=== PATIENT | female | born 1965 | race African-American/Black ===

== ENCOUNTER 2018-05-17 18:53 | Emergency (ER) | payer BC, OTHER ==
[2018-05-17 19:58] LABS: #Basophils 0.1 thou/uL (0.0-0.2); #Monocytes 0.2 thou/uL (0.11-0.59); #Neutrophils 9.2 thou/uL (1.40-6.50); %Basophils 0.5 % (0.0-1.0); %Eosinophils 0.2 % (0.0-10.0); %Lymphocytes 17.1 % (21.0-51.0); %Monocytes 2.1 % (0.0-10.0); Hemoglobin 13.5 g/dL (12.0-16.0); Mean Corpuscular HGB CONC 33.6 g/dL (32.0-36.0); Mean Corpuscular Hemoglobin 30.2 pg (27.0-31.0); Mean Corpuscular Volume 89.9 fL (78.0-98.0); Mean Platelet Volume 6.4 fL (7.4-10.4); Platelet Count 304 thou/uL (130-400); RBC Distribution Width 13.9 % (11.5-14.5); Red Blood Cell (RBC) Count 4.47 mill/uL (4.20-5.40); White Blood Cell (WBC) Count 11.5 thou/uL (4.8-10.8)
[2018-05-17 20:00] LABS: ALT (SGPT) 32 U/L (8-55); AST (SGOT) 21 U/L (5-34); Albumin 4.2 g/dL (3.5-5.0); Alkaline Phosphatase 78 U/L (40-150); Anion Gap 15 mmol/L (10-20); BUN (Urea Nitrogen) 23 mg/dL (9.8-20.1); Bilirubin, Total 0.4 mg/dL (0.2-1.2); Calc. Creatinine Clearance 0 mL/min (70-130); Calcium 9.4 mg/dL (7.8-10.44); Carbon Dioxide 26 mmol/L (22-29); Chloride 106 mmol/L (98-107); Estimated GFR-MDRD 62; Globulin 3.1 g/dL (2.4-3.5); Glucose 129 mg/dL (70-105); Potassium 4.3 mmol/L (3.5-5.1); Protein, Total 7.3 g/dL (6.0-8.3); Sodium 143 mmol/L (136-145)
--- NOTE | 2018-05-17 20:08 | RAD ---
UPRIGHT PORTABLE CHEST ONE VIEW: History: 52-year-old female with history of short of breath. FINDINGS: Large body habitus lowers the sensitivity of this study. No confluent pneumonia, overt edema, or pleu ral effusion. IMPRESSION: No acute intrathoracic disease. POS: [facility]
[2018-05-17] MEDS ORDERED: Ketorolac Tromethamine 30 MG/ML VIAL ONE (20:18)
--- NOTE | 2018-05-17 21:14 | ULT ---
BILATERAL LOWER EXTREMITY VENOUS DUPLEX ULTRASOUND INCLUDING COLOR AND SPECTRAL DOPPLER IMAGIN05/17/18 HISTORY: 52-year-old female with history of bilateral leg pain and shortness of breath. Exam performed from gr oin to ankle including visualized greater saphenous, common femoral, superficial femoral, profunda fe moral, popliteal, trifurcation, and posterior tibial vein regions. There is phasic flow at all levels with normal compressibility and normal augmentation. No intraluminal thrombus. IMPRESSION: No evidence for deep venous thrombosis. POS: [facility]
== END 2018-05-17 21:30 | disposition home or self-care (01) ==
LOC: SCSER 18:53
DX: M79.604 Pain in right leg (principal); M79.605 Pain in left leg; I10 Essential (primary) hypertension; E66.9 Obesity, unspecified; F32.9 Major depressive disorder, single episode, unspecified
CPT/HCPCS: 71045; 80053; 83880; 84484; 85025; 85379; 93005; 93970; 96374; J1885

== ENCOUNTER 2018-05-22 12:47 | Outpatient (CLI) | payer BC, OTHER | END 2018-05-22 12:48 | disposition home or self-care (01) | LOC: ULT 12:47 | PROVIDERS: ATTEND Family Medicine | DX: I10 Essential (primary) hypertension (principal); M79.89 Other specified soft tissue disorders; I08.1 Rheumatic disorders of both mitral and tricuspid valves | CPT/HCPCS: 93306 ==

== ENCOUNTER 2018-06-07 08:22 | Outpatient (CLI) | payer BC, OTHER ==
--- NOTE | 2018-06-07 09:49 | RAD ---
PA AND LATERAL CHEST XRAY: DATE: 06/07/2018. HISTORY: Fluid retention for many years. COMPARISON: 05/17/2018. FINDINGS: The cardiac silhouette and pulmonary vasculature are within normal limits. The lungs remain clear. There has been no interval change from the prior exam. IMPRESSION: No acute cardiopulmonary process. POS: [facility]
== END 2018-06-07 08:23 | disposition home or self-care (01) ==
LOC: SCSRAD 08:22
PROVIDERS: ATTEND Family Medicine
DX: R06.02 Shortness of breath (principal)
CPT/HCPCS: 71046

== ENCOUNTER 2018-08-02 10:24 | Emergency (ER) | payer BC, OTHER ==
[~2018-08-02 10:24] MED LIST: Iopamidol 370 76% 100 ML VIAL ONE
[2018-08-02 11:13] LABS: #Basophils 0.1 thou/uL (0.0-0.2); #Eosinphils 0.2 thou/uL (0.0-0.7); #Lymphocytes 2.4 thou/uL (1.20-3.40); #Monocytes 0.5 thou/uL (0.11-0.59); #Neutrophils 3.9 thou/uL (1.40-6.50); %Basophils 1.3 % (0.0-1.0); %Lymphocytes 33.6 % (21.0-51.0); %Neutrophils 55.2 % (42.0-75.0); Mean Corpuscular HGB CONC 32.5 g/dL (32.0-36.0); Mean Corpuscular Hemoglobin 30.9 pg (27.0-31.0); Mean Corpuscular Volume 95.2 fL (78.0-98.0); Mean Platelet Volume 6.9 fL (7.4-10.4); Platelet Count 305 thou/uL (130-400); RBC Distribution Width 12.8 % (11.5-14.5); Red Blood Cell (RBC) Count 4.52 mill/uL (4.20-5.40)
--- NOTE | 2018-08-02 11:51 | ULT ---
BILATERAL LOWER EXTREMITY VENOUS DUPLEX EXAM: Date: 08/02/18 HISTORY: Bilateral leg pain, swelling. Shortness of breath. FINDINGS: Real-time color Doppler evaluation of the right and left lower extremities performed from groin to ca lf. This includes evaluation of the common femoral, superficial and profunda femoral, saphenous, popl iteal, and posterior tibial veins. This shows patent deep venous systems bilaterally. There is normal compressibility and augmentation. There is no evidence of deep venous thrombosis. IMPRESSION: No evidence of deep venous thrombosis of either lower extremity. POS: [facility]
--- NOTE | 2018-08-02 14:04 | CT ---
CT ANGIOGRAM OF THE CHEST: HISTORY: Rheumatoid arthritis. Chest pain. Elevated D-dimer. COMPARISON: None. TECHNIQUE: CT angiogram of the chest is performed in the axial plane. Three-dimensional reformatted images are submitted for interpretation. FINDINGS: No mediastinal mass, lymphadenopathy, or hematoma. Heart size is within normal limits. No pericardi al effusion. The thoracic aorta and upper abdominal aorta have a normal caliber. No periaortic fat stranding. Diffuse hypoattenuation of the liver due to hepatic steatosis. Visualized upper solid abdominal visc era is grossly unremarkable. Trachea and central bronchi are patent. No masses or consolidation. No pleural effusion or pneumoth orax. Minimal scar/atelectasis in both lower lobes. No lytic or blastic lesions in the osseous structures. Adequate contrast opacification of the pulmon julio arterial system to the level of the segmental arteries. No filling defect to suggest thromboembo lism. IMPRESSION: No evidence of pulmonary artery embolism to the level of the segmental arteries. POS: [facility]
== END 2018-08-02 13:56 | disposition home or self-care (01) ==
LOC: SCSER 10:24
DX: R06.02 Shortness of breath (principal); R07.9 Chest pain, unspecified; E66.9 Obesity, unspecified; I10 Essential (primary) hypertension; M06.9 Rheumatoid arthritis, unspecified
CPT/HCPCS: 36415; 71275; 80053; 80061; 83036; 83880; 84443; 84484; 85025; 85379; 93005; 93970; Q9967

== ENCOUNTER 2018-11-15 09:07 | Outpatient (CLI) | payer OTHER ==
--- NOTE | 2018-11-20 13:03 | MMO ---
Bilateral MAMMO Bilat Screen [facility]. CLINICAL HISTORY: Patient is 53 years old and is seen for screening. The patient has the following family history of breast cancer: mother, at age 72, malignant (generic). The patient has no personal history of cancer. VIEWS: The views performed were: bilateral craniocaudal and bilateral mediolateral oblique. FILMS COMPARED: The present examination has been compared to a prior imaging study performed at This study has been interpreted with the assistance of computer-aided detection. MAMMOGRAM FINDINGS: There are scattered fibroglandular densities. There are benign appearing calcifications seen in the left breast. There are no suspicious masses, suspicious calcifications, or new areas of architectural distortion. IMPRESSION: THERE IS NO MAMMOGRAPHIC EVIDENCE OF MALIGNANCY. A ROUTINE FOLLOW-UP MAMMOGRAM IN 1 YEAR IS RECOMMENDED. ACR BI-RADS Category 2 - Benign finding MAMMOGRAPHY NOTE: 1. A negative mammogram report should not delay a biopsy if a dominant of clinically suspicious mass is present. 2. Approximately 10% to 15% of breast cancers are not detected by mammography. 3. Adenosis and dense breasts may obscure an underlying neoplasm.
== END 2018-11-15 09:08 | disposition home or self-care (01) ==
LOC: SCSMAMMO 09:07
PROVIDERS: ATTEND Family Medicine
DX: Z12.31 Encounter for screening mammogram for malignant neoplasm of breast (principal); Z80.3 Family history of malignant neoplasm of breast
CPT/HCPCS: 77067

== ENCOUNTER 2019-06-24 12:33 | Outpatient (CLI) | payer OTHER ==
--- NOTE | 2019-06-24 13:52 | CT ---
CT coronary calcium score: DATE: 06/24/2019 HISTORY: 54-year-old hypertensive female for coronary calcium score screening study. TECHNIQUE: Noncontrast CT through the heart, with display of the limited [id number] surrounding central lung ashby. FINDINGS: Liver is enlarged and has diffusely low attenuation representing fatty liver. No major pathology of central visualized portions of lung ashby. No cardiomegaly. No pericardial effusion. No coronary artery calcification. IMPRESSION: 1. Coronary calcium score is 0. 2. Hepatic steatosis and hepatomegaly.
== END 2019-06-24 12:34 | disposition home or self-care (01) ==
LOC: BICCT 12:33
PROVIDERS: ATTEND Family Medicine
DX: I10 Essential (primary) hypertension (principal); K76.0 Fatty (change of) liver, not elsewhere classified; R16.0 Hepatomegaly, not elsewhere classified
CPT/HCPCS: 75571

== ENCOUNTER 2020-03-30 12:39 | Outpatient (CLI) | payer OTHER | END 2020-03-30 12:40 | disposition home or self-care (01) | LOC: ULT 12:39 | PROVIDERS: ATTEND Family Medicine | DX: R60.0 Localized edema (principal); I08.1 Rheumatic disorders of both mitral and tricuspid valves | CPT/HCPCS: 93306 ==

== ENCOUNTER 2021-02-25 09:32 | Outpatient (CLI) | payer OTHER | END 2021-02-25 09:33 | disposition home or self-care (01) | LOC: BICRAD 09:32 | PROVIDERS: ATTEND Internal Medicine Pulmonary Disease | DX: R06.00 Dyspnea, unspecified (principal) | CPT/HCPCS: 71046 ==

== ENCOUNTER 2021-05-21 10:26 | Outpatient (CLI) | payer OTHER | END 2021-05-21 10:27 | disposition home or self-care (01) | LOC: DTY/OP 10:26 | PROVIDERS: ATTEND Surgery | DX: E66.01 Morbid (severe) obesity due to excess calories (principal) | CPT/HCPCS: 97802 ==

== ENCOUNTER 2021-06-30 10:31 | Outpatient (CLI) | payer OTHER | END 2021-06-30 10:32 | disposition home or self-care (01) | LOC: DTY/OP 10:31 | PROVIDERS: ATTEND Surgery | DX: E66.01 Morbid (severe) obesity due to excess calories (principal) | CPT/HCPCS: 97802 ==

== ENCOUNTER 2021-07-29 13:11 | Outpatient (CLI) | payer OTHER | END 2021-07-29 13:12 | disposition home or self-care (01) | LOC: DTY/OP 13:11 | PROVIDERS: ATTEND Surgery | DX: E66.01 Morbid (severe) obesity due to excess calories (principal) | CPT/HCPCS: 97802 ==

== ENCOUNTER 2021-09-29 10:54 | Outpatient (CLI) | payer OTHER | END 2021-09-29 10:55 | disposition home or self-care (01) | LOC: DTY/OP 10:54 | PROVIDERS: ATTEND Surgery | DX: E66.01 Morbid (severe) obesity due to excess calories (principal) | CPT/HCPCS: 97802 ==

== ENCOUNTER 2021-10-29 10:46 | Outpatient (CLI) | payer OTHER | END 2021-10-29 10:47 | disposition home or self-care (01) | LOC: DTY/OP 10:46 | PROVIDERS: ATTEND Surgery | DX: E66.01 Morbid (severe) obesity due to excess calories (principal) | CPT/HCPCS: 97802 ==

== ENCOUNTER 2021-12-24 09:49 | Outpatient (CLI) | payer OTHER ==
[2021-12-24 10:57] LABS: #Eosinphils 0.2 10x3/uL (0.0-0.5); #Monocytes 0.6 10x3/uL (0.0-1.1); #Neutrophils 4.4 10x3/uL (1.5-8.4); %Basophils 0.5 % (0.0-2.0); %Eosinophils 1.9 % (0.0-6.0); %Lymphocytes 33.6 % (18.0-47.0); %Monocytes 7.4 % (0.0-10.0); %Neutrophils 56.2 % (40.0-75.0); Hemoglobin 13.8 g/dL (12.0-15.5); Mean Corpuscular HGB CONC 33.7 g/dL (32.0-36.0); Mean Corpuscular Hemoglobin 30.5 pg (27.0-33.0); Mean Corpuscular Volume 90.5 fl (81.6-98.3); Mean Platelet Volume 9.4 fl (7.4-10.4); Platelet Count 331 10x3/uL (150-450); RBC Distribution Width 13.5 % (11.5-14.5); Red Blood Cell (RBC) Count 4.53 10x6/uL (3.90-5.03); White Blood Cell (WBC) Count 7.8 10x3/uL (3.5-10.5)
[2021-12-24 11:16] LABS: ALT (SGPT) 41 U/L (8-55); AST (SGOT) 27 U/L (5-34); Albumin 4.6 g/dL (3.5-5.0); Alkaline Phosphatase 74 U/L (40-110); Anion Gap 15 mmol/L (10-20); BUN (Urea Nitrogen) 21 mg/dL (9.8-20.1); Bilirubin, Total 0.5 mg/dL (0.2-1.2); Calc. Creatinine Clearance 0 mL/min (70-130); Calcium 9.9 mg/dL (7.8-10.44); Carbon Dioxide 25 mmol/L (22-29); Chloride 105 mmol/L (98-107); Estimated GFR 80; Globulin 2.8 g/dL (2.4-3.5); Glucose 101 mg/dL (70-105); Potassium 4.3 mmol/L (3.5-5.1); Protein, Total 7.4 g/dL (6.0-8.3); Sodium 141 mmol/L (136-145)
[2021-12-24 14:13] LABS: Hemoglobin A1c 6.4 % (4.0-6.0)
== END 2021-12-24 09:50 | disposition home or self-care (01) ==
LOC: LABBT 09:49
PROVIDERS: ATTEND Surgery
DX: Z01.818 Encounter for other preprocedural examination (principal); E66.01 Morbid (severe) obesity due to excess calories; Z20.822 Contact with and (suspected) exposure to COVID-19
CPT/HCPCS: 71046; 80053; 83036; 85025; 87811

== ENCOUNTER 2021-12-24 10:15 | Inpatient (IN) | payer OTHER ==
[2021-12-29] MEDS ORDERED: Heparin 5,000 UNITS/ML VIAL ONE (07:55)
[2021-12-29] MEDS ORDERED: Lidocaine 1% w/Epinephrine 1:200K 30 ML VIAL ONE (08:55)
[2021-12-29] MEDS ORDERED: Bupivacaine 0.25% 10 ML VIAL ONE ×2 (08:55→08:57)
[2021-12-29] MEDS ORDERED: SUGAMMADEX SODIUM 200 MG/2 ML VIAL ONE (09:44)
[2021-12-29] MEDS ORDERED: fentaNYL Citrate/PF 100 MCG/2 ML SYRINGE ONE (09:44)
[2021-12-29] MEDS ORDERED: CEFAZOLIN 2 GM VIAL ONE (09:53)
[2021-12-29] MEDS ORDERED: Sodium Chloride 0.9% 100 ML ONE (09:53)
[2021-12-29] MEDS ORDERED: Dexamethasone 20 MG/5 ML VIAL ONE (10:16)
[2021-12-29] MEDS ORDERED: Ondansetron PF 4 MG/2 ML Vial ONE (10:16)
[2021-12-29] MEDS ORDERED: PROPOFOL 200 MG/20 ML VIAL ONE (10:16)
[2021-12-29] MEDS ORDERED: Ketorolac Tromethamine 30 MG/ML VIAL ONE (10:16)
[2021-12-29] MEDS ORDERED: Rocuronium Bromide 10 MG/ML (10ML VIAL) ONE (10:16)
[2021-12-29] MEDS ORDERED: Lidocaine 1% PF 5 ML VIAL ONE (10:16)
[2021-12-29] MEDS ORDERED: Promethazine HCl 25 MG/ML VIAL IM PRN (11:17)
[2021-12-29] MEDS ORDERED: Promethazine HCl 25 MG/ML VIAL IVPB PRN (11:17)
[2021-12-29] MEDS ORDERED: Ondansetron HCl/PF 4 MG/2 ML Vial IVP PRN (11:17)
[2021-12-29] MEDS ORDERED: HYDROmorphone 2 MG/ML VIAL SLOW IVP PRN (11:17)
[2021-12-29] MEDS ORDERED: Meperidine HCl/PF 25 MG/ML VIAL SLOW IVP PRN (11:17)
[2021-12-29] MEDS ORDERED: Hydrocodone-Acetamin 15 ML UDCUP PO PRN (11:31)
[2021-12-29] MEDS ORDERED: diphenhydrAMINE 50 MG/ML VIAL IVP PRN (11:31)
[2021-12-29] MEDS ORDERED: hydrALAZINE 20 MG/ML VIAL SLOW IVP PRN (11:31)
[2021-12-29] MEDS ORDERED: Dextrose 5% in Water 1,000 ML IV PRN (11:31)
[2021-12-29] MEDS ORDERED: Morphine 2 MG/ML VIAL SLOW IVP PRN (11:31)
[2021-12-29] MEDS ORDERED: Dextrose 50% Abboject 50 ML SYRINGE SLOW IVP PRN (11:31)
[2021-12-29] MEDS ORDERED: ceFAZolin 2 GM/Dextrose 50 ML 2 GM in Premix Bag 1 BAG IVPB SCH (11:45)
[2021-12-29] MEDS ORDERED: Fentanyl 100 MCG/2 ML VIAL ONE ×3 (12:01→12:59)
[2021-12-29 14:03] VITALS: BMI 41.5
[2021-12-29] MEDS: Ketorolac Tromethamine 30 MG/ML VIAL IVP SCH ×3 (14:21→22:56)
[2021-12-29] MEDS: D5 1/2 NS w/20 mEq KCL 1,000 ML IV SCH ×2 (14:33→22:59)
[2021-12-29] MEDS: Promethazine HCl 25 MG/ML VIAL IM PRN ×2 (15:04→23:05)
[2021-12-29] MEDS: Morphine 4 MG/ML VIAL SLOW IVP PRN ×2 (15:11→18:09)
[2021-12-29] MEDS: CEFAZOLIN 2 GM in Sodium Chloride 0.9% 100 ML IVPB SCH (17:53)
[2021-12-29] MEDS: Ondansetron PF 4 MG/2 ML Vial IVP PRN (18:10)
[2021-12-30] MEDS: CEFAZOLIN 2 GM in Sodium Chloride 0.9% 100 ML IVPB SCH (01:55)
[2021-12-30] MEDS: Ketorolac Tromethamine 30 MG/ML VIAL IVP SCH ×2 (05:26→11:25)
[2021-12-30] MEDS: Ondansetron PF 4 MG/2 ML Vial IVP PRN ×2 (05:29→11:54)
[2021-12-30] MEDS: D5 1/2 NS w/20 mEq KCL 1,000 ML IV SCH (05:30)
[2021-12-30 06:19] LABS: #Lymphocytes 2.4 thou/uL (1.20-3.40); #Monocytes 1.1 thou/uL (0.11-0.59); %Eosinophils 0.3 % (0.0-10.0); %Lymphocytes 19.2 % (21.0-51.0); %Monocytes 8.5 % (0.0-10.0); Hemoglobin 12.4 g/dL (12.0-16.0); Mean Corpuscular HGB CONC 32.2 g/dL (32.0-36.0); Mean Corpuscular Hemoglobin 31.2 pg (27.0-31.0); Mean Corpuscular Volume 96.9 fL (78.0-98.0); Mean Platelet Volume 7.3 fL (7.4-10.4); Platelet Count 283 thou/uL (130-400); RBC Distribution Width 12.7 % (11.5-14.5); Red Blood Cell (RBC) Count 3.98 mill/uL (4.20-5.40); White Blood Cell (WBC) Count 12.5 thou/uL (4.8-10.8)
[2021-12-30 06:44] LABS: Anion Gap 13 mmol/L (10-20); BUN (Urea Nitrogen) 12 mg/dL (9.8-20.1); Calc. Creatinine Clearance 124 mL/min (70-130); Calcium 8.6 mg/dL (7.8-10.44); Carbon Dioxide 25 mmol/L (22-29); Chloride 107 mmol/L (98-107); Estimated GFR 71; Glucose 131 mg/dL (70-105); Potassium 3.9 mmol/L (3.5-5.1); Sodium 141 mmol/L (136-145)
[2021-12-30] MEDS ORDERED: Enoxaparin Sodium 40 MG/0.4 ML SYRINGE SC SCH (09:00)
[2021-12-30] MEDS ORDERED: Pantoprazole 40 MG VIAL IVP SCH (09:00)
[2021-12-30 11:57] VITALS: BP 122/78; TEMP 98.1
== END 2021-12-30 13:55 | disposition home or self-care (01) | DRG 621 ==
LOC: SURG A 12-29 07:11
PROVIDERS: ADMIT Surgery; ATTEND Surgery
PROC: 0DB64Z3 Excision of Stomach, Percutaneous Endoscopic Approach, Vertical (ICD-10-PCS; principal; 2021-12-29)
PROC: 8E0W3CZ Robotic Assisted Procedure of Trunk Region, Percutaneous Approach (ICD-10-PCS; 2021-12-29)
DX: E66.01 Morbid (severe) obesity due to excess calories (principal); Z68.41 Body mass index [BMI] 40.0-44.9, adult; I10 Essential (primary) hypertension; M19.90 Unspecified osteoarthritis, unspecified site; E11.9 Type 2 diabetes mellitus without complications; Z90.710 Acquired absence of both cervix and uterus; Z98.51 Tubal ligation status; Z98.890 Other specified postprocedural states; Z87.891 Personal history of nicotine dependence; Z88.8 Allergy status to other drugs, medicaments and biological substances
CPT/HCPCS: 36415; 36416; 80048; 85025; 88307; 88342; C9113; J0360; J0690; J1100; J1644; J1650; J1885; J2270; J2405; J2550; J2704; J3010; J3480; J3490; S0020

== ENCOUNTER 2022-01-20 11:40 | Outpatient (CLI) | payer OTHER | END 2022-01-20 11:41 | disposition home or self-care (01) | LOC: SCSRAD 11:40 | PROVIDERS: ATTEND Student in an Organized Health Care Education/Training Program | DX: M25.552 Pain in left hip (principal) ==

== ENCOUNTER 2022-06-22 00:22 | Observation (INO) | payer OTHER ==
[2022-06-22 00:43] LABS: #Eosinphils 0.2 thou/uL (0.0-0.7); #Lymphocytes 2.9 thou/uL (1.20-3.40); #Monocytes 0.5 thou/uL (0.11-0.59); #Neutrophils 4.2 thou/uL (1.40-6.50); %Basophils 0.3 % (0.0-1.0); %Eosinophils 2.5 % (0.0-10.0); %Lymphocytes 36.7 % (21.0-51.0); %Neutrophils 53.6 % (42.0-75.0); Hemoglobin 13.4 g/dL (12.0-16.0); Mean Corpuscular HGB CONC 33.8 g/dL (32.0-36.0); Mean Corpuscular Hemoglobin 31.6 pg (27.0-31.0); Mean Corpuscular Volume 93.3 fl (78.0-98.0); Mean Platelet Volume 7.6 fL (7.4-10.4); Platelet Count 276 10x3/uL (130-400); RBC Distribution Width 12.1 % (11.5-14.5); Red Blood Cell (RBC) Count 4.26 mill/uL (4.20-5.40); White Blood Cell (WBC) Count 7.8 10x3/uL (4.8-10.8)
[2022-06-22 00:52] LABS: INR-International Normal Ratio 0.9; PTT 24.7 sec (22.9-36.1); Prothrombin Time 12.5 sec (12.0-14.7)
[2022-06-22] MEDS ORDERED: Dextrose 50% Abboject 50 ML SYRINGE ONE (00:57)
[2022-06-22 01:04] LABS: ALT (SGPT) 20 U/L (8-55); AST (SGOT) 20 U/L (5-34); Albumin 4.2 g/dL (3.5-5.0); Alkaline Phosphatase 85 U/L (40-110); Anion Gap 15 mmol/L (10-20); BUN (Urea Nitrogen) 16 mg/dL (9.8-20.1); Bilirubin, Total 0.7 mg/dL (0.2-1.2); CK (CPK) 245 U/L (29-168); Calc. Creatinine Clearance 0 mL/min (70-130); Calcium 9.6 mg/dL (7.8-10.44); Carbon Dioxide 25 mmol/L (22-29); Chloride 105 mmol/L (98-107); Estimated GFR 81; Globulin 3.2 g/dL (2.4-3.5); Glucose 86 mg/dL (70-105); Potassium 3.9 mmol/L (3.5-5.1); Protein, Total 7.4 g/dL (6.0-8.3); Sodium 141 mmol/L (136-145)
[2022-06-22] MEDS ORDERED: Aspirin Chewable 81 MG TAB ONE ×2 (04:25→04:26)
[2022-06-22 05:12] LABS: Bilirubin Negative (Negative); Blood, Urine Negative (Negative); Clarity Clear (Clear); Glucose, Urine (Dipstick) Normal (Negative); Ketone, Urine 20 mg/dL (Negative); Leukocyte Negative Leu/uL (Negative); Nitrite Negative (Negative); Protein, Urine (Dipstick) Negative (Neg-Trace); Specific Gravity, Urine 1.033 (1.002-1.036); Urobilinogen Normal mg/dL (Less than 2)
[2022-06-22 05:14] LABS: Amphetamine Not Detected (NotDetected); Barbiturates Screen Not Detected (NotDetected); Benzodiazepine Screen Not Detected (NotDetected); Cocaine Metabolite Screen Not Detected (NotDetected); Methadone Not Detected (NotDetected); Methamphetamine Not Detected (NotDetected); Opiate Screen Not Detected (NotDetected); Oxycodone Screen Not Detected (NotDetected); Phencyclidine (PCP) Not Detected (NotDetected); THC/Cannabinoid Screen Not Detected (NotDetected); Tricyclic Screen Not Detected (NotDetected)
[2022-06-22] MEDS ORDERED: Acetaminophen 325 MG TAB PO PRN (07:56)
[2022-06-22] MEDS ORDERED: Ondansetron PF 4 MG/2 ML Vial IVP PRN (07:56)
[2022-06-22] MEDS ORDERED: Ondansetron ODT 4 MG TAB PO PRN (07:56)
[2022-06-22] MEDS ORDERED: HumaLOG 300 UNITS/3 ML VIAL SC PRN ×2 (08:23)
[2022-06-22] MEDS ORDERED: Dextrose 50% Abboject 50 ML SYRINGE SLOW IVP PRN (08:23)
[2022-06-22] MEDS ORDERED: Dextrose 5% in Water 1,000 ML IV PRN (08:23)
[2022-06-22] MEDS ORDERED: Iopamidol-370 76% 500 ML 1 ML ONE (09:02)
[2022-06-22 10:09] LABS: Magnesium 2.2 mg/dL (1.6-2.6)
[2022-06-22 10:12] LABS: Hemoglobin A1c 5.4 % (4.0-6.0)
[2022-06-22] MEDS ORDERED: Lorazepam 2 MG/ML VIAL SLOW IVP SCH (11:00)
[2022-06-22] MEDS ORDERED: LORazepam 2 MG/ML SYR.(CARPUJECT) ONE (12:02)
[2022-06-22 18:54] VITALS: BMI 35.0
[2022-06-22] MEDS ORDERED: Atorvastatin Calcium 40 MG TAB PO SCH (21:00)
[2022-06-22] MEDS: Atorvastatin Calcium 10 MG TAB PO SCH (21:33)
[2022-06-23 06:03] LABS: #Eosinphils 0.2 thou/uL (0.0-0.7); #Lymphocytes 2.6 thou/uL (1.20-3.40); #Monocytes 0.4 thou/uL (0.11-0.59); #Neutrophils 2.7 thou/uL (1.40-6.50); %Basophils 0.3 % (0.0-1.0); %Eosinophils 3.6 % (0.0-10.0); %Lymphocytes 43.6 % (21.0-51.0); %Monocytes 6.9 % (0.0-10.0); %Neutrophils 45.6 % (42.0-75.0); Hemoglobin 14.7 g/dL (12.0-16.0); Mean Corpuscular HGB CONC 34.8 g/dL (32.0-36.0); Mean Corpuscular Volume 94.8 fl (78.0-98.0); Mean Platelet Volume 7.3 fL (7.4-10.4); Platelet Count 285 10x3/uL (130-400); RBC Distribution Width 12.3 % (11.5-14.5); Red Blood Cell (RBC) Count 4.45 mill/uL (4.20-5.40); White Blood Cell (WBC) Count 5.9 10x3/uL (4.8-10.8)
[2022-06-23 06:16] LABS: Anion Gap 11 mmol/L (10-20); BUN (Urea Nitrogen) 11 mg/dL (9.8-20.1); Calc. Creatinine Clearance 124 mL/min (70-130); Calcium 9.1 mg/dL (7.8-10.44); Carbon Dioxide 22 mmol/L (22-29); Cardiac Risk 3.7 (Less than 4.5); Chloride 110 mmol/L (98-107); Cholesterol 171 mg/dl (< 200 Desired); Estimated GFR 89; Glucose 72 mg/dL (70-105); HDL Cholesterol 46 mg/dL (>60 Neg Risk); LDL Cholesterol, Calculated 107 mg/dL; Potassium 4.2 mmol/L (3.5-5.1); Sodium 139 mmol/L (136-145); Triglycerides 88 mg/dL (Less than 150)
[2022-06-23] MEDS ORDERED: Meloxicam 15 MG TAB PO SCH (09:00)
[2022-06-23] MEDS: Furosemide 20 MG TAB PO SCH (09:36)
[2022-06-23] MEDS: Hydrochlorothiazide 25 MG TAB PO SCH (09:36)
[2022-06-23] MEDS: Aspirin 81 mg Enteric Coated Tablet PO SCH (09:36)
[2022-06-23] MEDS ORDERED: Cyclobenzaprine 10 MG TAB PO SCH (13:00)
[2022-06-23] MEDS ORDERED: Ibuprofen 100 MG/5 ML UDCUP PO SCH (13:00)
[2022-06-23] MEDS ORDERED: Ibuprofen 600 MG TAB PO PRN (18:05)
[2022-06-23] MEDS: Atorvastatin Calcium 10 MG TAB PO SCH (20:11)
[2022-06-24 04:59] LABS: #Eosinphils 0.2 thou/uL (0.0-0.7); #Lymphocytes 3.1 thou/uL (1.20-3.40); #Monocytes 0.5 thou/uL (0.11-0.59); #Neutrophils 2.7 thou/uL (1.40-6.50); %Basophils 0.4 % (0.0-1.0); %Eosinophils 3.5 % (0.0-10.0); %Lymphocytes 47.4 % (21.0-51.0); %Monocytes 7.3 % (0.0-10.0); %Neutrophils 41.3 % (42.0-75.0); Hemoglobin 14.9 g/dL (12.0-16.0); Mean Corpuscular HGB CONC 33.3 g/dL (32.0-36.0); Mean Corpuscular Hemoglobin 31.4 pg (27.0-31.0); Mean Corpuscular Volume 94.1 fl (78.0-98.0); Mean Platelet Volume 7.4 fL (7.4-10.4); Platelet Count 285 10x3/uL (130-400); RBC Distribution Width 12.4 % (11.5-14.5); Red Blood Cell (RBC) Count 4.76 mill/uL (4.20-5.40); White Blood Cell (WBC) Count 6.6 10x3/uL (4.8-10.8)
[2022-06-24 05:21] LABS: Anion Gap 14 mmol/L (10-20); BUN (Urea Nitrogen) 15 mg/dL (9.8-20.1); Calc. Creatinine Clearance 121 mL/min (70-130); Calcium 9.6 mg/dL (7.8-10.44); Carbon Dioxide 25 mmol/L (22-29); Chloride 104 mmol/L (98-107); Estimated GFR 87; Glucose 86 mg/dL (70-105); Potassium 3.9 mmol/L (3.5-5.1); Sodium 139 mmol/L (136-145)
[2022-06-24 08:06] VITALS: TEMP 97.9
[2022-06-24] MEDS: Furosemide 20 MG TAB PO SCH (11:19)
[2022-06-24] MEDS: Aspirin 81 mg Enteric Coated Tablet PO SCH (11:20)
[2022-06-24] MEDS: Hydrochlorothiazide 25 MG TAB PO SCH (11:20)
[2022-06-24 16:06] VITALS: BP 117/69
[2022-06-25] MEDS ORDERED: FLU VACC QS2022-23(6MOS UP)/PF 60 MCG/0.5 ML SYRINGE IM ONE (09:00)
== END 2022-06-24 12:40 | disposition home or self-care (01) ==
LOC: ERS 00:22 → ERHOLD 05:13 → NEURO 18:46
PROVIDERS: ADMIT Internal Medicine; ATTEND Internal Medicine
DX: R53.1 Weakness (principal); R47.81 Slurred speech; E11.9 Type 2 diabetes mellitus without complications; I10 Essential (primary) hypertension; E78.5 Hyperlipidemia, unspecified; M06.9 Rheumatoid arthritis, unspecified; G89.29 Other chronic pain; M79.673 Pain in unspecified foot; I25.10 Atherosclerotic heart disease of native coronary artery without angina pectoris; M47.812 Spondylosis without myelopathy or radiculopathy, cervical region; M50.221 Other cervical disc displacement at C4-C5 level; I08.1 Rheumatic disorders of both mitral and tricuspid valves; E66.9 Obesity, unspecified; Z68.35 Body mass index [BMI] 35.0-35.9, adult; Z87.891 Personal history of nicotine dependence; Z79.84 Long term (current) use of oral hypoglycemic drugs; Z79.899 Other long term (current) drug therapy; Z20.822 Contact with and (suspected) exposure to COVID-19
CPT/HCPCS: 36415; 36416; 70450; 70496; 70498; 70551; 71045; 72141; 80048; 80053; 80061; 80306; 81003; 82550; 83036; 83735; 84443; 84484; 85025; 85610; 85730; 93005; 93306; 96372; 96374; 96375; G0378; J1650; J2060; J7999; Q9967; U0003; U0005

== ENCOUNTER 2023-05-16 10:14 | Inpatient (IN) | payer OTHER ==
[2023-05-16 10:59] LABS: #Eosinphils 0.2 thou/uL (0.0-0.7); #Monocytes 0.4 thou/uL (0.11-0.59); #Neutrophils 2.6 thou/uL (1.40-6.50); %Basophils 0.5 % (0.0-1.0); %Eosinophils 3.7 % (0.0-10.0); %Lymphocytes 45.5 % (21.0-51.0); %Monocytes 7.1 % (0.0-10.0); Hematocrit 39.2 % (36.0-47.0); Hemoglobin 13.1 g/dL (12.0-16.0); Mean Corpuscular HGB CONC 33.4 g/dL (32.0-36.0); Mean Corpuscular Volume 92.7 fl (78.0-98.0); Mean Platelet Volume 9.3 fL (7.4-10.4); Platelet Count 288 10x3/uL (130-400); RBC Distribution Width 13.8 % (11.5-14.5); Red Blood Cell (RBC) Count 4.23 mill/uL (4.20-5.40)
[2023-05-16 11:21] LABS: ALT (SGPT) 15 U/L (8-55); AST (SGOT) 17 U/L (5-34); Albumin 4.1 g/dL (3.5-5.0); Alkaline Phosphatase 70 U/L (40-110); Anion Gap 12 mmol/L (10-20); BUN (Urea Nitrogen) 13 mg/dL (9.8-20.1); Bilirubin, Total 0.5 mg/dL (0.2-1.2); Calc. Creatinine Clearance 0 mL/min (70-130); Calcium 9.3 mg/dL (7.8-10.44); Carbon Dioxide 26 mmol/L (22-29); Chloride 108 mmol/L (98-107); Estimated GFR 85; Globulin 2.9 g/dL (2.4-3.5); Glucose 92 mg/dL (70-105); Lipase 33 U/L (8-78); Potassium 3.8 mmol/L (3.5-5.1); Sodium 142 mmol/L (136-145)
[2023-05-16 11:24] LABS: Troponin I Less than 0.010 ng/mL (< 0.028)
[2023-05-16] MEDS ORDERED: Iopamidol-370 76% 500 ML MDV (1 ML CHARGE) ONE (11:29)
[2023-05-16] MEDS ORDERED: Meclizine HCl 25 MG TAB ONE (13:09)
[2023-05-16] MEDS ORDERED: Aspirin Chewable 81 MG TAB ONE (13:13)
[2023-05-16 16:09] LABS: Troponin I Less than 0.010 ng/mL (< 0.028)
[2023-05-16] MEDS ORDERED: Acetaminophen 325 MG TAB PO PRN ×2 (16:30→16:37)
[2023-05-16] MEDS ORDERED: Ondansetron ODT 4 MG TAB SL PRN (16:30)
[2023-05-16] MEDS ORDERED: Ondansetron PF 4 MG/2 ML Vial IVP PRN (16:30)
[2023-05-16] MEDS ORDERED: Lorazepam 0.5 MG TAB PO PRN (16:37)
[2023-05-16] MEDS ORDERED: HumaLOG 300 UNITS/3 ML VIAL SC PRN ×2 (16:37)
[2023-05-16] MEDS ORDERED: Glucagon 1 MG/ML KIT IM PRN (16:37)
[2023-05-16] MEDS ORDERED: Dextrose 50% Abboject 50 ML SYRINGE SLOW IVP PRN (16:37)
[2023-05-16] MEDS ORDERED: hydrALAZINE 20 MG/ML VIAL SLOW IVP PRN (16:37)
[2023-05-16] MEDS ORDERED: Dextrose 5% in Water 1,000 ML IV PRN (16:37)
[2023-05-16 17:23] VITALS: BMI 37.3
[2023-05-16 18:52] LABS: Troponin I Less than 0.010 ng/mL (< 0.028)
[2023-05-16 19:25] LABS: Bacteria/HPF None Seen HPF (None Seen); Bilirubin Negative (Negative); Blood, Urine Negative (Negative); Clarity Clear (Clear); Glucose, Urine (Dipstick) Normal (Negative); Ketone, Urine Negative (Negative); Leukocyte Negative Leu/uL (Negative); Nitrite Negative (Negative); Protein, Urine (Dipstick) Negative (Neg-Trace); RBC/HPF 0-3 HPF (0-3); Squamous Epithelial 0-3 HPF (0-3); Urobilinogen Normal mg/dL (Less than 2); WBC/HPF 0-3 HPF (0-3); pH, Urine 5.5 (5.0-9.0)
[2023-05-16 19:26] LABS: Specific Gravity, Urine 1.052 (1.002-1.036)
[2023-05-16] MEDS: Meclizine HCl 25 MG TAB PO PRN (20:36)
[2023-05-16] MEDS: Atorvastatin Calcium 40 MG TAB PO SCH (20:36)
[2023-05-16] MEDS: Metoprolol Tartrate 25 MG TAB PO SCH (22:22)
[2023-05-17 04:57] LABS: #Eosinphils 0.2 thou/uL (0.0-0.7); #Monocytes 0.4 thou/uL (0.11-0.59); #Neutrophils 2.5 thou/uL (1.40-6.50); %Basophils 0.6 % (0.0-1.0); %Eosinophils 3.7 % (0.0-10.0); %Lymphocytes 49.5 % (21.0-51.0); %Monocytes 5.8 % (0.0-10.0); %Neutrophils 40.2 % (42.0-75.0); Hematocrit 37.7 % (36.0-47.0); Hemoglobin 12.5 g/dL (12.0-16.0); Mean Corpuscular HGB CONC 33.2 g/dL (32.0-36.0); Mean Corpuscular Hemoglobin 30.7 pg (27.0-31.0); Mean Corpuscular Volume 92.6 fl (78.0-98.0); Mean Platelet Volume 9.5 fL (7.4-10.4); Platelet Count 282 10x3/uL (130-400); RBC Distribution Width 14.2 % (11.5-14.5); Red Blood Cell (RBC) Count 4.07 mill/uL (4.20-5.40); White Blood Cell (WBC) Count 6.2 10x3/uL (4.8-10.8)
[2023-05-17 05:07] LABS: Hemoglobin A1c 6.1 % (4.0-6.0)
[2023-05-17 05:24] LABS: Anion Gap 13 mmol/L (10-20); BUN (Urea Nitrogen) 14 mg/dL (9.8-20.1); Calc. Creatinine Clearance 130 mL/min (70-130); Calcium 9.1 mg/dL (7.8-10.44); Carbon Dioxide 27 mmol/L (22-29); Cardiac Risk 2.6 (Less than 4.5); Chloride 105 mmol/L (98-107); Cholesterol 145 mg/dl (< 200 Desired); Estimated GFR 88; Glucose 89 mg/dL (70-105); HDL Cholesterol 56 mg/dL (>60 Neg Risk); LDL Cholesterol, Calculated 61 mg/dL; Potassium 3.6 mmol/L (3.5-5.1); Sodium 141 mmol/L (136-145); Triglycerides 141 mg/dL (Less than 150)
[2023-05-17] MEDS: Metoprolol Tartrate 25 MG TAB PO SCH (08:07)
[2023-05-17] MEDS: Aspirin 81 mg Enteric Coated Tablet PO SCH (08:07)
[2023-05-17 12:37] LABS: Free T4 (Free Thyroxine) 0.97 ng/dL (0.70-1.48)
[2023-05-17] MEDS: Lactated Ringer's 1,000 ML IV SCH (13:25)
[2023-05-17] MEDS ORDERED: Benzonatate 100 MG CAP PO PRN (13:58)
[2023-05-17] MEDS ORDERED: Ondansetron PF 4 MG/2 ML Vial IVP PRN (13:58)
[2023-05-17] MEDS ORDERED: Bisacodyl 5 MG TAB PO PRN (13:58)
[2023-05-17] MEDS ORDERED: Senokot S 8.6-50 MG TAB PO PRN (13:58)
[2023-05-17] MEDS ORDERED: Sodium Chloride 0.65% Nasal 44 ML BOT EA NARE PRN (13:58)
[2023-05-17] MEDS ORDERED: Calcium Carbonate 500 MG ChewTAB PO PRN (13:58)
[2023-05-17] MEDS ORDERED: Moisturizing Cream (Eucerin) 113 GM JAR TOP PRN (13:58)
[2023-05-17] MEDS ORDERED: Loratadine 10 MG TAB PO PRN (13:58)
[2023-05-17] MEDS ORDERED: diphenhydrAMINE 25 MG CAP PO PRN (13:58)
[2023-05-17] MEDS ORDERED: Artificial Tear Sol 15 ML BOT EA EYE PRN (13:58)
[2023-05-17] MEDS ORDERED: Ondansetron ODT 4 MG TAB SL PRN (13:58)
[2023-05-17 14:36] LABS: Amphetamine Not Detected (NotDetected); Barbiturates Screen Not Detected (NotDetected); Benzodiazepine Screen Detected (NotDetected); Cocaine Metabolite Screen Not Detected (NotDetected); Methadone Not Detected (NotDetected); Methamphetamine Not Detected (NotDetected); Opiate Screen Not Detected (NotDetected); Oxycodone Screen Not Detected (NotDetected); Phencyclidine (PCP) Not Detected (NotDetected); THC/Cannabinoid Screen Detected (NotDetected); Tricyclic Screen Not Detected (NotDetected)
[2023-05-17] MEDS: Atorvastatin Calcium 40 MG TAB PO SCH (20:28)
[2023-05-17] MEDS: Meclizine HCl 25 MG TAB PO PRN (20:30)
[2023-05-18] MEDS: Lactated Ringer's 1,000 ML IV SCH (03:23)
[2023-05-18 09:05] VITALS: BP 137/89; TEMP 98.3
[2023-05-18] MEDS: Aspirin 81 mg Enteric Coated Tablet PO SCH (09:06)
== END 2023-05-18 11:25 | disposition home or self-care (01) | DRG 149 ==
LOC: SUATTDRO 10:14 → ERS 10:14 → 2NO 14:43 → OBSVTOIN 05-18 09:34
PROVIDERS: ADMIT Internal Medicine; ATTEND Family Medicine
DX: R42 Dizziness and giddiness (principal); H93.A9 Pulsatile tinnitus, unspecified ear; E11.9 Type 2 diabetes mellitus without complications; I10 Essential (primary) hypertension; E78.5 Hyperlipidemia, unspecified; M06.9 Rheumatoid arthritis, unspecified; Z79.84 Long term (current) use of oral hypoglycemic drugs; Z79.82 Long term (current) use of aspirin; Z79.899 Other long term (current) drug therapy; Z98.51 Tubal ligation status; Z98.890 Other specified postprocedural states; Z82.49 Family history of ischemic heart disease and other diseases of the circulatory system; Z90.710 Acquired absence of both cervix and uterus; Z80.3 Family history of malignant neoplasm of breast; Z86.73 Personal history of transient ischemic attack (TIA), and cerebral infarction without residual deficits
CPT/HCPCS: 36415; 36416; 70450; 70496; 70498; 70551; 71045; 80048; 80053; 80061; 80306; 81001; 83036; 83690; 84439; 84443; 84481; 84484; 85025; 93005; J2405; J7120; Q0162